=== PATIENT | female | born 1940 | race Caucasian/White ===

== ENCOUNTER 2017-07-01 09:58 | Emergency (ER) | payer OTHER ==
[~2017-07-01] VITALS: Ht 154.9 cm; Wt 61.1 kg
[2017-07-01] MEDS ORDERED: TYLENOL WITH C1 EACH PO (11:20)
[2017-07-01 11:45] VITALS: BP 136/69
== END 2017-07-01 11:47 | disposition home or self-care (01) ==
LOC: EME 09:58
DX: M75.31 Calcific tendinitis of right shoulder (principal); S43.031A Inferior subluxation of right humerus, initial encounter; X50.0XXA Overexertion from strenuous movement or load, initial encounter; F17.200 Nicotine dependence, unspecified, uncomplicated
CPT/HCPCS: 73030; 99281; 99283